=== PATIENT | female | born 1955 | race Native Hawaiian/Other Pacific Islander ===

== ENCOUNTER 2019-01-12 11:13 | Inpatient (IN) | payer BC, OTHER ==
[~2019-01-12] VITALS: Ht 152.4 cm; Wt 54.0 kg
--- NOTE | 2019-01-12 11:20 | NUR ---
RAMANSELLelo FROM HOME FOR SOB/NAUSEA X3DAYS, RECENT DC FROM [facility], PT AAOX4, PT ON MONITOR, VSS, NAD NOTED, PENDING MD PERSON
[2019-01-12] MEDS ORDERED: IV NS 0.9% 1,000 ML BAG IV ONE (11:30)
[2019-01-12 11:39] LABS: BASOPHILS # (AUTO) 0.1 /CMM (0.0-0.2); BASOPHILS % (AUTO) 1.1 % (0.0-2.0); HEMATOCRIT 43 % (33-45); HEMOGLOBIN 14.6 g/dL (11.5-14.8); LYMPHOCYTES % (AUTO) 19.1 % (20.0-44.0); MEAN CORPUSCULAR HGB CONC 34 g/dl (31.0-36.0); MEAN CORPUSCULAR VOLUME 90 fL (82-100); MONOCYTES # (AUTO) 0.7 /CMM (0.1-1.30); MONOCYTES % (AUTO) 6.7 % (2.0-12.0); NEUTROPHILS # (AUTO) 7.6 /CMM (1.8-8.9); NEUTROPHILS % (AUTO) 73.1 % (43.0-81.0); PLATELET COUNT (AUTO) 407 /CMM (150-450); RED BLOOD CELL COUNT(AUTO) 4.78 MIL/uL (4.0-5.2); WHITE BLOOD COUNT (AUTO) 10.3 K/uL (4.3-11.0)
[2019-01-12 11:45] LABS: CALCIUM, SERUM 10.2 mg/dL (8.5-10.1); CARBON DIOXIDE 21 mmol/L (21-32); CHLORIDE 96 mmol/L (98-107); GLUCOSE 233 mg/dL (74-106); POTASSIUM 3.7 mmol/L (3.5-5.1); SODIUM SERUM 132 mmol/L (136-145); UREA NITROGEN, BLOOD 9 mg/dL (7-18)
[2019-01-12 11:51] LABS: ALANINE AMINOTRANSFERASE 49 U/L (12-78); ALBUMIN 4.5 g/dL (3.4-5.0); ALKALINE PHOSPHATASE 80 U/L (46-116); ASPARTATE AMINOTRANSFERASE 25 U/L (15-37); BILIRUBIN,DIRECT 0.2 mg/dL (0.0-0.2); BILIRUBIN,TOTAL 0.8 mg/dL (0.2-1.0); TOTAL PROTEIN, SERUM 8.1 g/dL (6.4-8.2)
[2019-01-12] MEDS ORDERED: IV NS 0.9% 500 ML IV ONE (12:00)
[2019-01-12] MEDS ORDERED: PIPERACILLIN /TAZOBACTAM 3.375 G in IV D5W 50 ML IV ONE (12:00)
[2019-01-12] MEDS ORDERED: IV NS 0.9% 250 ML IV ONE (12:00)
[2019-01-12] MEDS ORDERED: PIPERACILLIN /TAZOBACTAM 3.375 G VIAL IV ONE (12:05)
[2019-01-12 12:18] LABS: APPEARANCE,URINE Clear (CLEAR); BILIRUBIN,URINE Negative (NEGATIVE); BLOOD, URINE Negative Ery/uL (NEGATIVE); COLOR,URINE Yellow (YELLOW); KETONES,URINE 40 (NEGATIVE); LEUKOCYTE ESTERASE ,URINE Negative (NEGATIVE); NITRITE, URINE Negative (NEGATIVE); PROTEIN,URINE Negative (NEGATIVE); UGLUCOSE >=1000 mg/dL (NEGATIVE); UROBILINOGEN,URINE 0.2 EU/dL (0.2)
[2019-01-12 12:26] LABS: BACTERIA,URINE None seen /HPF (None Seen); RBC,URINE 0-2 /HPF (0-2); SQUAMOUS EPITHELIAL CELL,UR Few /HPF (None Seen); WBC,URINE 0-3 /HPF (0-3)
--- NOTE | 2019-01-12 13:15 | NUR ---
CALLED [facility] ITS ONI
[2019-01-12] MEDS ORDERED: METF-440 PO (13:17)
[2019-01-12] MEDS ORDERED: ALBU18HF2 IH (13:17)
[2019-01-12] MEDS ORDERED: PRED20TA PO (13:17)
[2019-01-12] MEDS ORDERED: BLOO-668 IN (13:17)
[2019-01-12] MEDS ORDERED: ALBU1.257 IH (13:17)
[2019-01-12] MEDS ORDERED: ALPR0.5T8 PO (13:17)
[2019-01-12] MEDS ORDERED: GLYB5TAB7 PO (13:17)
[2019-01-12] MEDS ORDERED: LISI-607 PO (13:17)
[2019-01-12] MEDS ORDERED: SIMV20TA6 PO (13:17)
--- NOTE | 2019-01-12 13:30 | NUR ---
PAGED ONI MAYEN X2
--- NOTE | 2019-01-12 14:23 | NUR ---
NURSING SUP CALLED FOR BED. PT GOING TO [facility] 313-2 NURSE PATTIE.
--- NOTE | 2019-01-12 14:45 | NUR ---
REPORT GIVEN TO SHERRY BLANKENSHIP FOR DANK; PT WILL BE TRANSPORTED VIA [facility].
[2019-01-12 15:00] VITALS: BP 143/84
--- NOTE | 2019-01-12 15:00 | NUR ---
CLIENT ACCOUNT REPRESENTATIVERELAY ADJUSTER NOTE PT ARRIVED TO TO TELE UNIT IN STABLE CONDITION VIA GURNEY ACCOMPANIED BY 2 ER STAFF. PT IS AMBULATORY. PT IS A/O X4, AFEBRILE. RESPIRATIONS ARE EVEN AND UNLABORED, NOT IN ANY ACUTE DISTRESS NOTED. PT DENIES ANY PAIN AT THIS TIME, NO C/O SOB, N/V. PUPILS ARE REACTIVE TO LIGHT, BILATERAL HAND ROADWAY DESIGNER ARE STRONG AND EQUAL. SKIN IS INTACT, NO SKIN ISSUES NOTED. ABDOMEN IS SOFT AND NONDISTENDED, BOWEL SOUNDS ARE PRESENT IN ALL 4 QUADRANTS UPON AUSCULTATION. DENIES ANY BLADDER DISCOMFORT. DR. PAULA MADE AWARE OF ADMISSION. SAFETY MEASURES ARE IN PLACE. INSTRUCTED PT TO USE CALL LIGHT WHEN ASSISTANCE IS NEEDED, CALL LIGHT IS LEFT WITHIN REACH. WILL CONTINUE TO MONITOR THROUGHOUT SHIFT FOR CONTINUIYT OF CARE.
[2019-01-12 16:00] VITALS: BP 143/84
[2019-01-12] MEDS ORDERED: ALBUTEROL SULFATE 8 GM HFA.AER.AD IH PRN (17:00)
[2019-01-12] MEDS ORDERED: ALPRAZOLAM 0.25 MG TABLET PO PRN (17:00)
[2019-01-12] MEDS ORDERED: ALBUTEROL HALF STRENGTH 1.25 MG/3 ML VIAL.NEB IH PRN (17:00)
[2019-01-12] MEDS ORDERED: ONDANSETRON HCL/PF 4 MG/2 ML VIAL IV PRN (17:00)
--- NOTE | 2019-01-12 17:00 | NUR ---
ALLERGIST/PEDIATRIC PULMONOLOGIST NOTES-- PT SEEN AND EXAMINED BY DR. PAULA.
[2019-01-12] MEDS: PANTOPRAZOLE 40 MG TABLET.DR PO SCH (18:35)
[2019-01-12] MEDS: glyBURIDE 5 MG TABLET PO SCH (18:35)
[2019-01-12] MEDS: LISINOPRIL (5MG) 5 MG TABLET PO SCH (18:36)
--- NOTE | 2019-01-12 19:13 | NUR ---
ARTIST MANNEQUIN COLORING CLOSING NOTES PT ABLE TO MAKE NEEDS KNOWN. NEEDS MET AND RENDERED. ALL DUE MEDS GIVEN, NEEDS MET AND RENDERED. PT REMAINS A/O X4, AFEBRILE,. RESPIRATIONS ARE EVEN AND UNLABORED, NOT IN ANY ACUTE DISTRESS NOTED. DENIES ANY PAIN AT THIS TIME. NO C/O SOB, N/V. IV SITE TO LAC INTACT, NO INFILTRATION NOTED. DRESSING KEPT CLEAN AND DRY. IV FLUIDS RUNNING AT 100ML/HR, TOLERATING WELL. SAFETY MEASURES ARE IN PLACE. WILL ENDORSE TO NEXT SHIFT FOR CONTINUIYT OF CARE.
--- NOTE | 2019-01-12 19:30 | NUR ---
RN NOTES RECEIVED PT. AWAKE ON BED, A/OX4, AMBULATORY SR ON TELE MONITOR HR-83, DENIES PAIN, NO SOB, CALL LIGHT WITHIN REACH, [id number], CONTINUE TO MONITOR
[2019-01-12 20:00] VITALS: BP 112/63
[2019-01-12 20:21] VITALS: BP 112/63
[2019-01-13] VITALS: BP 117/69
--- NOTE | 2019-01-13 00:18 | NUR ---
RN NOTES pa. is having panic attack, Xanax 0.25mg po given as ordered, v/s stable
[2019-01-13] MEDS: ACETAMINOPHEN ES 500 MG TABLET PO PRN ×2 (03:55→08:35)
[2019-01-13 04:36] VITALS: BP 109/68
--- NOTE | 2019-01-13 04:57 | NUR ---
RN NOTES PT. COMPLAINED OF BODY ACHES- TYLENOL ES 500MG PO GIVEN ORDERED, V/S STABLE
--- NOTE | 2019-01-13 06:40 | NUR ---
RN NOTES AWAKE, DENIES PAIN, NO SOB, MORNING CARE RENDERED, CALL LIGHT WITHIN REACH, [id number], PT. NEEDS ATTENDED
[2019-01-13 07:23] LABS: CREATININE 0.8 mg/dL (0.6-1.3); POTASSIUM 4.1 mmol/L (3.5-5.1)
--- NOTE | 2019-01-13 07:30 | NUR ---
energy economist Opening Notes: Patient currently awake, resting in bed. Semi-Fowlers position, supine. Alert and oriented x3, able to make needs known. No complaints of shortness of breath or chest pain at this time. Respirations even and unlabored on room air. External phototypesetting equipment monitor in place; current rhythm: normal sinus rhythm at 65 bpm. Peripheral IV to the left AC 20 gauge, intact, patent and infusing fluids as ordered. Updated patient on current plan of care and safety measures. Safety and fall precautions in place: bed in lowest and locked position, side rails up x2, bed alarm on, call light and personal possessions within reach. Room well lit and floor clear of items. Reminded patient of safety measures, verbalized understanding. Patient currently clean, dry and comfortable. Will continue to monitor and intervene as needed.
[2019-01-13 07:37] LABS: ALBUMIN 3.4 g/dL (3.4-5.0); BASOPHILS % (AUTO) 0.3 % (0.0-2.0); BILIRUBIN,TOTAL 0.6 mg/dL (0.2-1.0); EOSINOPHILS % (AUTO) 3.3 % (0.0-6.0); HEMATOCRIT 38 % (33-45); HEMOGLOBIN 12.9 g/dL (11.5-14.8); LYMPHOCYTES # (AUTO) 2.6 /CMM (0.8-4.8); LYMPHOCYTES % (AUTO) 40.7 % (20.0-44.0); MEAN CORPUSCULAR HGB CONC 34 g/dl (31.0-36.0); MEAN CORPUSCULAR VOLUME 92 fL (82-100); MONOCYTES # (AUTO) 0.7 /CMM (0.1-1.30); MONOCYTES % (AUTO) 11.6 % (2.0-12.0); NEUTROPHILS # (AUTO) 2.8 /CMM (1.8-8.9); NEUTROPHILS % (AUTO) 44.1 % (43.0-81.0); PLATELET COUNT (AUTO) 320 /CMM (150-450); RED BLOOD CELL COUNT(AUTO) 4.14 MIL/uL (4.0-5.2); TOTAL PROTEIN, SERUM 6.4 g/dL (6.4-8.2); WHITE BLOOD COUNT (AUTO) 6.3 K/uL (4.3-11.0)
[2019-01-13 08:00] VITALS: BP 97/56
[2019-01-13] MEDS ORDERED: IV D5/0.45 NACL 500 ML IV ONE (08:30)
[2019-01-13] MEDS: PANTOPRAZOLE 40 MG TABLET.DR PO SCH (08:34)
[2019-01-13] MEDS: SIMVASTATIN 20 MG TABLET PO SCH (08:35)
[2019-01-13] MEDS: glyBURIDE 5 MG TABLET PO SCH ×4 (08:35→17:15)
[2019-01-13] MEDS: LINAGLIPTIN 5 MG TABLET PO SCH (08:36)
[2019-01-13] MEDS: LISINOPRIL (5MG) 5 MG TABLET PO SCH (08:40)
[2019-01-13] MEDS ORDERED: SITAGLIPTIN PHOSPHATE 50 MG TABLET PO SCH (09:00)
--- NOTE | 2019-01-13 12:12 | NUR ---
MS RN Note: Spoke with Dr. Hong via telephone for updated dietary orders per Revenue Coordinator recommendation. Received verbal orders, read-back and verified per protocol: Glucerna oral supplement twice a day, advance to Carb-controlled (45 gram) diet now, and repeat lactic acid blood draw at 1600. Noted and carried out.
[2019-01-13] MEDS: GLUCERNA SHAKE 237 ML CAN PO SCH ×2 (12:30→17:00)
[2019-01-13 16:00] VITALS: BP 111/71
[2019-01-13] MEDS ORDERED: LINA5TAB PO (16:56)
--- NOTE | 2019-01-13 18:00 | NUR ---
MS RN Note: Repeat Lactic acid level of 2.7. Dr. Hong aware, hold discharge until AM.
--- NOTE | 2019-01-13 19:30 | NUR ---
RN NOTES: RECEIVED PATIENT RESTING COMFORTABLY IN BED,AWAKE ALERT AND ORIENTED X4, NO COMPLAIN OF PAIN. NO SOB. CALL LIGHT WITHIN REACH.
--- NOTE | 2019-01-13 19:40 | NUR ---
MS RN Closing Notes: Patient currently awake, resting in bed. Semi-Fowlers position, supine. Alert and oriented x3, able to make needs known. No complaints of shortness of breath or chest pain at this time. Respirations even and unlabored on room air. Peripheral IV to the left AC 20 gauge, intact, patent and infusing fluids as ordered. Updated patient on current plan of care and safety measures. Safety and fall precautions in place: bed in lowest and locked position, side rails up x2, bed alarm on, call light and personal possessions within reach. Room well lit and floor clear of items. Reminded patient of safety measures, verbalized understanding. Patient currently clean, dry and comfortable. 500 ml bolus administered this shift along with all due medications as ordered. MD aware of status update with lactic acid level. Will endorse care to SHERRY Rodriguez for production supervisor off shift.
[2019-01-13 20:00] VITALS: BP 130/88
--- NOTE | 2019-01-13 22:40 | NUR ---
RN NOTES PT. WAS COMPLAINING OF HYPERACIDITY CALLED DR. PAULA TO GET AN ORDER BUT DR. PAULA WAS SURPRISED THAT PT. WAS STILL IN THE HOSPITAL. INFORMED DR. PAULA THAT FROM THE REPORT THAT I RECEIVED PT. IS TO BE D/C IN AM BECAUSE LACTIC ACID IS 2.7 AND EVEN THE PT. IS AWARE THAT SHE'S GOING TO BE D/C IN AM , WHEN I MAKE MY ROUNDS @1929 PT. EVEN TOLD ME THAT SHE'S GOING HOME IN AM AND EVEN TOLD IT TO HER CHILDREN, BECAUSE PT. DROVE HERE WHEN SHE WENT TO ER. DR. PAULA TOLD ME TO CHECK HIS ORDER AND WHEN I LOOKED AT IT HE ORDERED THE DISCHARGE ORDER @ 1954. I TOLD DR. PAULA PT. LACTIC ACID STILL 2.7 AND HE WAS OK WITH IT, SO I ASKED HIM IF HE WANTS ME TO D/C YULY PT. TONIGHT BUT PT. WANTS TO BE D/C IN AM AND WAS EVEN CONCERNED THAT IF SHE CAN BE D/C AFTER BREAKFAST OR AT LEAST [facility] OR ANY PHARMACY THAT'S ALREADY OPEN SO SHE CAN BUY HER MEDICATION. DR. PAULA GAVE AN ORDER OF MAALOX 30ML PRN AND LACTIC ACID IN AM BUT I INFORMED DR. PAULA THAT HE ALREADY INPUT AM LABS, SO HE TOLD ME TO KEEP IT. ORDER NOTED AND CARRIED OUT
[2019-01-13] MEDS ORDERED: MAG HYDROX/AL HYDROX/SIMETH 30 ML UDC PO PRN (23:00)
--- NOTE | 2019-01-13 23:11 | NUR ---
RN NOTES: PATIENT COMPLAINED OF STOMACH UPSET. CALLED DR PAULA AND RECEIVED ORDER. MAALOX 30ML PO GIVEN @1255.
[2019-01-14 06:12] LABS: CALCIUM, SERUM 9.3 mg/dL (8.5-10.1); CREATININE 0.8 mg/dL (0.6-1.3); POTASSIUM 4.1 mmol/L (3.5-5.1)
--- NOTE | 2019-01-14 06:20 | NUR ---
RN NOTES AWAKE, DENIES PAIN, NO SOB, MORNING CARE RENDERED, CALL LIGHT WITHIN REACH, [id number], PT. NEEDS ATTENDED
--- NOTE | 2019-01-14 06:37 | NUR ---
MS RN CLOSING NOTES: PATIENT'S HEMODYNAMICS AND RESPIRATORY STATUS ARE STABLE. RESTED THROUGHOUT THE NIGHT. V/A WNL. AFEBRILE. PATIENT COMPLAINED OF SLIGHT DISCOMFORT ON THE RIGHT AC, NOTED A LIGHT PINK SKIN IRRITATIONS, ACCORDING TO THE PATIENT, IT WAS CAUSED BY REMOVAL OF THE PAPER TAPE DURING THE ROUTINE AM LAB DRAW YESTERDAY MORNING. SKIN IRRITATION CLEANSED WITH NS, PAT DRY, AND COVERED WITH GAUZE AND SECURED WITH KERLIX. PATIENT JUST WALKED TO THE BATHROOM, HAD BM, PATIENT STATED IT'S NORMAL. CALL LIGHT WITHIN REACH.
[2019-01-14 08:00] VITALS: BP 164/86
[2019-01-14] MEDS: GLUCERNA SHAKE 237 ML CAN PO SCH (08:00)
--- NOTE | 2019-01-14 08:00 | NUR ---
RN NOTES PATIENT RECEIVED IN BED AWAKE ALERT AND VERBALLY RESPONSIVE, ABLE TO MAKE NEEDS KNOWN. RESPIRATIONS EVEN AND UNLABORED, DENIES ANY PAIN OR DISCOMFORT AT THIS TIME. PT WITH IV IN LEFT AC PATENT AND INTACT NO REDNESS OR INFILTRATION NOTED. PT TO BE DISCHARGED HOME TODAY, WILL FURTHER ASSIST IN PROCESS, PT REQUESTS TO LEAVE BEFORE LUNCH TIME. WILL CONTINUE TO MONITOR
[2019-01-14] MEDS: glyBURIDE 5 MG TABLET PO SCH (08:18)
[2019-01-14] MEDS: SIMVASTATIN 20 MG TABLET PO SCH (08:18)
[2019-01-14] MEDS: LINAGLIPTIN 5 MG TABLET PO SCH (08:18)
[2019-01-14] MEDS: PANTOPRAZOLE 40 MG TABLET.DR PO SCH (08:18)
[2019-01-14 08:49] VITALS: BP 144/72
--- NOTE | 2019-01-14 09:25 | NUR ---
NURSING ASSISTANT NOTES PATIENT SEEN AND EXAMINED BY DR. PAULA, WITH ORDERS TO DISCHARGE PATIENT TO HOME AWARE, OF PT LAB VALUES. PATIENT AWAKE ALERT AND VERBALLY RESPONSIVE ABLE TO MAKE NEEDS KNOWN, RESPIRATIONS EVEN AND UNLABORED, DENIES ANY PAIN OR DISCOMFORT AT THIS TIME. IV ACCESS REMOVE AND ID BAND, NO SKIN ISSUES. REVIEWED DISCHARGE INSTRUCTIONS AND PRESCRIPTIONS WITH NOTED VERBAL UNDERSTANDING NOTED. PATIENT ASSISTED TO LOBBY BY RN FOR DISCHARGE. DISCHARGED IN STABLE CONDITION.
== END 2019-01-14 09:25 | disposition home or self-care (01) | DRG 392 ==
LOC: ER 11:24 → TELE 15:16 → MED 01-13 08:51
PROVIDERS: ADMIT Internal Medicine; ATTEND Internal Medicine
DX: A08.4 Viral intestinal infection, unspecified (principal); E87.2 Acidosis; E86.0 Dehydration; E11.9 Type 2 diabetes mellitus without complications; E78.5 Hyperlipidemia, unspecified; F41.9 Anxiety disorder, unspecified; I10 Essential (primary) hypertension; J45.909 Unspecified asthma, uncomplicated; T38.3X5A Adverse effect of insulin and oral hypoglycemic [antidiabetic] drugs, initial encounter; Y92.89 Other specified places as the place of occurrence of the external cause; Z88.2 Allergy status to sulfonamides
CPT/HCPCS: 36415; 71045-TC; 80048-TC; 80053-TC; 80076-TC; 81000-TC; 82962-TC; 83605-TC; 83735-TC; 84484-TC; 85025-TC; 85730-TC; 87040-TC; 87081-TC; 87086-TC; 89055; 94799-TC; G0378; J2543; J3480; J3490; J7030; J7060

== ENCOUNTER 2019-02-14 16:04 | Emergency (ER) | payer OTHER ==
[~2019-02-14] VITALS: Ht 152.4 cm; Wt 55.3 kg
[~2019-02-14 16:04] MED LIST: ALBU1.257 IH; ALBU18HF2 IH; ALPR0.5T8 PO; BLOO-668 IN; GLYB5TAB7 PO; LINA5TAB PO; SIMV20TA6 PO
--- NOTE | 2019-02-14 16:39 | NUR ---
PT BIBSELF FOR MULTIPLE COMPLAINTS; "MUSLCE PAIN, NAUSEA, LUNG HEAVINESS, LEG WEAKNESS", PT AAOX4, PT ON MONITOR, VSS, NAD NOTED, PENDING MD PERSON
[2019-02-14 17:45] LABS: APPEARANCE,URINE Clear (CLEAR); BILIRUBIN,URINE Negative (NEGATIVE); BLOOD, URINE Negative Ery/uL (NEGATIVE); COLOR,URINE Yellow (YELLOW); KETONES,URINE Trace (NEGATIVE); LEUKOCYTE ESTERASE ,URINE Negative (NEGATIVE); NITRITE, URINE Negative (NEGATIVE); PH,URINE 6.5 (5.0-8.0); PROTEIN,URINE Negative (NEGATIVE); UGLUCOSE 100 MG/DL mg/dL (NEGATIVE); UROBILINOGEN,URINE 0.2 EU/dL (0.2)
[2019-02-14 17:48] LABS: BACTERIA,URINE Few /HPF (None Seen); RBC,URINE 0-2 /HPF (0-2); SQUAMOUS EPITHELIAL CELL,UR Few /HPF (None Seen); WBC,URINE 0-2 /HPF (0-3)
[2019-02-14 17:59] LABS: BASOPHILS # (AUTO) 0.1 /CMM (0.0-0.2); BASOPHILS % (AUTO) 0.9 % (0.0-2.0); EOSINOPHILS % (AUTO) 2.7 % (0.0-6.0); HEMATOCRIT 43 % (33-45); HEMOGLOBIN 14.8 g/dL (11.5-14.8); LYMPHOCYTES % (AUTO) 31.4 % (20.0-44.0); MEAN CORPUSCULAR HGB CONC 34 g/dl (31.0-36.0); MEAN CORPUSCULAR VOLUME 92 fL (82-100); MONOCYTES # (AUTO) 0.8 /CMM (0.1-1.30); MONOCYTES % (AUTO) 7.8 % (2.0-12.0); NEUTROPHILS # (AUTO) 5.5 /CMM (1.8-8.9); NEUTROPHILS % (AUTO) 57.2 % (43.0-81.0); PLATELET COUNT (AUTO) 365 /CMM (150-450); RED BLOOD CELL COUNT(AUTO) 4.69 MIL/uL (4.0-5.2); WHITE BLOOD COUNT (AUTO) 9.6 K/uL (4.3-11.0)
[2019-02-14] MEDS ORDERED: ONDANSETRON 4 MG TAB.RAPDIS PO ONE (18:00)
[2019-02-14 18:08] LABS: CALCIUM, SERUM 9.7 mg/dL (8.5-10.1); CARBON DIOXIDE 25 mmol/L (21-32); CHLORIDE 104 mmol/L (98-107); CREATININE 0.9 mg/dL (0.6-1.3); GLUCOSE 201 mg/dL (74-106); POTASSIUM 3.8 mmol/L (3.5-5.1); SODIUM SERUM 143 mmol/L (136-145); UREA NITROGEN, BLOOD 10 mg/dL (7-18)
[2019-02-14] MEDS ORDERED: ONDANSETRON 4 MG TAB.RAPDIS ONE (18:52)
--- NOTE | 2019-02-14 19:17 | NUR ---
RECEIVED REPORT FROM SHERRY VIVAS FOR DANK, PT IS AAOX3, NOT IN RESPIRATORY IDSTRESS, V/S STABLE, KEPT RESTED AND COMFORTABLE, WILL CONTINUE TO MONITOR.
--- NOTE | 2019-02-14 20:18 | NUR ---
IV removed. Catheter intact and site benign. Pressure and 4x4 applied to site. No bleeding noted. Patient discharged to home in stable condition. Written and verbal after care instructions given. Patient verbalizes understanding of instruction.
[2019-02-14 20:19] VITALS: BP 122/86
== END 2019-02-14 20:20 | disposition home or self-care (01) ==
LOC: ER 16:07
DX: M79.662 Pain in left lower leg (principal); M79.661 Pain in right lower leg; R11.0 Nausea; R10.11 Right upper quadrant pain; I10 Essential (primary) hypertension; J45.909 Unspecified asthma, uncomplicated; E11.9 Type 2 diabetes mellitus without complications; Z90.89 Acquired absence of other organs; Z98.890 Other specified postprocedural states; Z60.2 Problems related to living alone
CPT/HCPCS: 36415; 71045; 76705; 80048; 81001; 84484; 85025; 93005 ×2; 99284; Q0162; 81000-TC

== ENCOUNTER 2019-02-19 13:54 | Emergency (ER) | payer OTHER ==
[~2019-02-19] VITALS: Ht 152.4 cm; Wt 55.3 kg
--- NOTE | 2019-02-19 14:10 | NUR ---
C/O DYSURIA x 2 DAYS. PATIENT A/OX4, BREATHING EVEN AND UNLABORED, NO SOB NOTED. PLACED ON THE MONITOR. NO DISTRESS NOTED. WAITING FOR MD PERSON.
[2019-02-19 14:27] LABS: BASOPHILS # (AUTO) 0.1 /CMM (0.0-0.2); BASOPHILS % (AUTO) 0.8 % (0.0-2.0); EOSINOPHILS % (AUTO) 0.5 % (0.0-6.0); HEMATOCRIT 41 % (33-45); HEMOGLOBIN 14.1 g/dL (11.5-14.8); LYMPHOCYTES % (AUTO) 24.5 % (20.0-44.0); MEAN CORPUSCULAR HGB CONC 35 g/dl (31.0-36.0); MEAN CORPUSCULAR VOLUME 91 fL (82-100); MONOCYTES # (AUTO) 0.6 /CMM (0.1-1.30); MONOCYTES % (AUTO) 7.8 % (2.0-12.0); NEUTROPHILS # (AUTO) 5.3 /CMM (1.8-8.9); NEUTROPHILS % (AUTO) 66.4 % (43.0-81.0); PLATELET COUNT (AUTO) 393 /CMM (150-450)
[2019-02-19 14:28] LABS: APPEARANCE,URINE Clear (CLEAR); BILIRUBIN,URINE Negative (NEGATIVE); BLOOD, URINE Negative Ery/uL (NEGATIVE); COLOR,URINE Yellow (YELLOW); KETONES,URINE 15 (NEGATIVE); LEUKOCYTE ESTERASE ,URINE Negative (NEGATIVE); NITRITE, URINE Negative (NEGATIVE); PROTEIN,URINE Negative (NEGATIVE); UGLUCOSE 250 MG/DL mg/dL (NEGATIVE); UROBILINOGEN,URINE 0.2 EU/dL (0.2)
[2019-02-19] MEDS ORDERED: IV NS 0.9% 1,000 ML BAG IV ONE (14:30)
[2019-02-19] MEDS ORDERED: ONDANSETRON HCL/PF 4 MG/2 ML VIAL IVP ONE (14:30)
[2019-02-19 14:34] LABS: BACTERIA,URINE Rare /HPF (None Seen); RBC,URINE 0-2 /HPF (0-2); SQUAMOUS EPITHELIAL CELL,UR Few /HPF (None Seen); WBC,URINE 0-2 /HPF (0-3)
[2019-02-19] MEDS ORDERED: ONDANSETRON HCL/PF 4 MG/2 ML VIAL ONE (14:34)
[2019-02-19 14:38] LABS: CALCIUM, SERUM 8.6 mg/dL (8.5-10.1); CARBON DIOXIDE 23 mmol/L (21-32); CHLORIDE 98 mmol/L (98-107); CREATININE 0.7 mg/dL (0.6-1.3); GLUCOSE 251 mg/dL (74-106); POTASSIUM 3.4 mmol/L (3.5-5.1); SODIUM SERUM 133 mmol/L (136-145); UREA NITROGEN, BLOOD 8 mg/dL (7-18)
[2019-02-19] MEDS ORDERED: IOHEXOL-300 100 ML VIAL IV ONE (14:49)
[2019-02-19] MEDS ORDERED: CT SWABBABLE VALVE TRANS SET 1 EA INFUS.SET MC ONE (14:49)
[2019-02-19] MEDS ORDERED: IV NS 0.9% 250 ML IV ONE (14:49)
[2019-02-19 14:53] LABS: ALANINE AMINOTRANSFERASE 49 U/L (12-78); ALBUMIN 4.1 g/dL (3.4-5.0); ALKALINE PHOSPHATASE 63 U/L (46-116); ASPARTATE AMINOTRANSFERASE 34 U/L (15-37); BILIRUBIN,DIRECT 0.1 mg/dL (0.0-0.2); BILIRUBIN,TOTAL 0.5 mg/dL (0.2-1.0); TOTAL PROTEIN, SERUM 7.5 g/dL (6.4-8.2)
--- NOTE | 2019-02-19 15:49 | NUR ---
US TECH AT BEDSIDE.
--- NOTE | 2019-02-19 16:45 | NUR ---
ESTEVEZ CATHETER FR 16 INSERTED VIA ASEPTIC TECHNIQUE, 850ML URINE OUTPUT.
[2019-02-19] MEDS ORDERED: LISI-603 PO (17:00)
[2019-02-19] MEDS ORDERED: METF-440 PO (17:00)
--- NOTE | 2019-02-19 19:05 | NUR ---
PATIENT IN NAD, VSS, ESTEVEZ CATH PATENT AND DRAINING.
--- NOTE | 2019-02-19 19:30 | NUR ---
PT RECEIVED FROM SHERRY KIMBALL FOR DANK. PT IS AAOX4. NAD. IN STABLE CONDITION. AWAITING INFORMATION FROM [facility] FOR TRANSFER.
--- NOTE | 2019-02-19 19:36 | NUR ---
PATIENT ENDORSED TO BRANDON POWELL FOR DANK.
[2019-02-19] MEDS ORDERED: FAMOTIDINE/PF INJ 20 MG/2 ML VIAL IV ONE ×2 (20:29→20:30)
--- NOTE | 2019-02-19 21:01 | NUR ---
SPOKE TO AISHA THE INCIDENT RESPONSE COORDINATOR. STATES THAT PICKUP IS IN 2 HRS BY [facility]. GOING TO [facility] BED 308A. RN IS MARY. REPORT [phone]
--- NOTE | 2019-02-19 21:23 | NUR ---
CALLED [facility] FOR REPORT. GIVEN TO SHERRY HERNANDEZ FOR DANK.
--- NOTE | 2019-02-19 21:25 | NUR ---
FAHEEM DUMAS MADE AWARE OF PT'S BP NOTED AT 170/90. NNO RECEIVED. PT IS ASSYMPTOMATIC.
[2019-02-19] MEDS ORDERED: MAG HYDROX/AL HYDROX/SIMETH 30 ML UDC ONE (22:48)
[2019-02-19] MEDS ORDERED: MAG HYDROX/AL HYDROX/SIMETH 30 ML UDC PO ONE (23:00)
[2019-02-19 23:27] VITALS: BP 160/94
--- NOTE | 2019-02-19 23:27 | NUR ---
PT AT BEING P/U BY [facility]. #111. REPORT GIVEN TO AMBULANCE STAFF. PT STABLE FOR TRANSPORT. AAOX4. NAD, BREATHING EVEN AND UNLABORED. ON [place] / AMBULANCE STAFF.
== END 2019-02-19 23:37 | disposition short-term general hospital (02) ==
LOC: ER 13:59
DX: R33.9 Retention of urine, unspecified (principal); R19.7 Diarrhea, unspecified; I10 Essential (primary) hypertension; E11.9 Type 2 diabetes mellitus without complications; J45.909 Unspecified asthma, uncomplicated; R10.84 Generalized abdominal pain; Z98.890 Other specified postprocedural states; Z60.2 Problems related to living alone
CPT/HCPCS: 36415; 51702; 71045; 74177; 76856 ×2; 80048; 80076; 81001; 83605; 84484; 85025; 85730; 87040 ×2; 87086; 93005; 96361; 96374; 96375; 99285; J2405; J3490; J7030; J7050; Q9967; 81000-TC